=== PATIENT | male | born 1995 ===

== ENCOUNTER 2018-01-04 09:07 | Emergency (ER) | payer OTHER ==
[2018-01-04 10:18] VITALS: BP 131/58
--- NOTE | 2018-01-04 10:26 | UC ---
Ear Complaint HPI - HPI Summary HPI Summary: l EAR PAIN FOR 2 DAYS . NO URI OR FEVER. - History of Current Complaint Chief Complaint: UCEar Stated Complaint: LEFT EAR PAIN Time Seen by Provider: 01/04/18 10:17 Hx Obtained From: Patient Onset/Duration: Gradual Onset, Still Present Pain Intensity: 4 Aggravating Factors: Nothing Alleviating Factors: Nothing Associated Signs/Symptoms: Negative: Discharge, Foreign Body Sensation, Trauma to Ear, Swelling @ - Allergies/Home Medications Allergies/Adverse Reactions: Allergies Allergy/AdvReac Type Severity Reaction Status Date / Time No Known Allergies Allergy Verified 01/04/18 10:18 PMH/Surg Hx/FS Hx/Imm Hx Previously Healthy: Yes - Surgical History Surgical History: None - Family History Known Family History: Positive: None - Social History Occupation: Student Lives: Dormitory/Roommates Alcohol Use: Occasionally Substance Use Type: None Smoking Status (MU): Never Smoked Tobacco - Immunization History Vaccination Up to Date: Yes Review of Systems Constitutional: Negative Skin: Negative Eyes: Negative ENT: Ear Ache Respiratory: Negative Cardiovascular: Negative Gastrointestinal: Negative Genitourinary: Negative Motor: Negative Neurovascular: Negative Musculoskeletal: Negative Neurological: Negative Psychological: Negative Is Patient Immunocompromised?: No All Other Systems Reviewed And Are Negative: Yes Physical Exam Triage Information Reviewed: Yes Appearance: Well-Appearing Vital Signs: Initial Vital Signs Temp 98.2 F 01/04/18 10:12 Pulse 57 01/04/18 10:12 Resp 18 01/04/18 10:12 BP 131/58 01/04/18 10:12 Pulse Ox 100 01/04/18 10:12 Vital Signs Reviewed: Yes Eyes: Positive: Conjunctiva Clear ENT: Positive: Hearing grossly normal, Pharynx normal, TMs normal, Other - L CANAL WITH MILD SWELLING AND ERYTHEMA.. Negative: Nasal congestion, Nasal drainage Neck: Positive: Supple, Nontender, No Lymphadenopathy Respiratory: Positive: Lungs clear, Normal breath sounds, No respiratory distress Cardiovascular: Positive: RRR, No Murmur Abdomen Description: Positive: Nontender, No Organomegaly, Soft Bowel Sounds: Positive: Present Musculoskeletal: Positive: ROM Intact Neurological: Positive: Alert Psychological: Positive: Age Appropriate Behavior Skin Exam: Normal Ear Complaint Course/Dx - Course Course Of Treatment: L OE, will tx with antibiotic drops - Differential Dx/Diagnosis Provider Diagnoses: L otitis externa Discharge - Discharge Plan Condition: Stable Disposition: HOME Prescriptions: Neomyc/Polym/HC 1% OTIC SUSP* [Cortisporin Otic Susp 1%*] 4 drop LEFT EAR TID 7 Days #1 btl Patient Education Materials: Otitis Externa (ED) Referrals: Non Staff,Doctor [Primary Care Provider] - Additional Instructions: FOLLOW UP [facility] IN 5-7 DAYS FOR A RECHECK OR SOONER IF WORSE.
== END 2018-01-04 10:35 | disposition home or self-care (01) ==
LOC: UCCORT 09:07
DX: H60.92 Unspecified otitis externa, left ear (principal)
CPT/HCPCS: 99202; G0463